=== PATIENT | male | born 1950 | race Two or more races ===

== ENCOUNTER 2021-03-06 15:56 | Inpatient (IN) | payer OTHER ==
[~2021-03-06] VITALS: Ht 165.1 cm; Wt 49.9 kg
[2021-03-06] MEDS ORDERED: CLONAZEPAM1 MG (16:21)
== END 2021-04-11 22:55 | disposition home or self-care (01) | DRG 981 ==
LOC: ER 15:56 → SEC-K 03-07 07:49 → MEDJ 03-07 07:49 → MEDI 03-07 14:04 → MEDJ 03-11 15:10 → ICU 03-19 16:20 → SURH 03-21 20:02
PROVIDERS: Surgery; ADMIT Internal Medicine; ATTEND Internal Medicine
PROC: BW21ZZZ Computerized Tomography (CT Scan) of Abdomen and Pelvis (ICD-10-PCS; 2021-03-07)
PROC: 4A12X4Z Monitoring of Cardiac Electrical Activity, External Approach (ICD-10-PCS; 2021-03-11)
PROC: 8E0ZXY6 Isolation (ICD-10-PCS; 2021-03-12)
PROC: 0D1B0Z4 Bypass Ileum to Cutaneous, Open Approach (ICD-10-PCS; 2021-03-19)
PROC: BW2110Z Computerized Tomography (CT Scan) of Abdomen and Pelvis using Low Osmolar Contrast, Unenhanced and Enhanced (ICD-10-PCS; 2021-03-19)
PROC: 3E0F7SF Introduction of Other Gas into Respiratory Tract, Via Natural or Artificial Opening (ICD-10-PCS; 2021-03-19)
PROC: 4A033R1 Measurement of Arterial Saturation, Peripheral, Percutaneous Approach (ICD-10-PCS; 2021-03-19)
PROC: 0DTM0ZZ Resection of Descending Colon, Open Approach (ICD-10-PCS; principal; 2021-03-19 10:15)
PROC: 3E0F7GC Introduction of Other Therapeutic Substance into Respiratory Tract, Via Natural or Artificial Opening (ICD-10-PCS; 2021-03-20)
PROC: BW21ZZZ Computerized Tomography (CT Scan) of Abdomen and Pelvis (ICD-10-PCS; 2021-04-01)
PROC: 30233N1 Transfusion of Nonautologous Red Blood Cells into Peripheral Vein, Percutaneous Approach (ICD-10-PCS; 2021-04-02)
PROC: 05HY33Z Insertion of Infusion Device into Upper Vein, Percutaneous Approach (ICD-10-PCS; 2021-04-03)
DX: N39.0 Urinary tract infection, site not specified (principal); N17.8 Other acute kidney failure; U07.1 COVID-19; K56.699 Other intestinal obstruction unspecified as to partial versus complete obstruction; C18.6 Malignant neoplasm of descending colon; K63.1 Perforation of intestine (nontraumatic); K65.8 Other peritonitis; J18.8 Other pneumonia, unspecified organism; A41.9 Sepsis, unspecified organism; E87.1 Hypo-osmolality and hyponatremia; D64.9 Anemia, unspecified; B96.1 Klebsiella pneumoniae [K. pneumoniae] as the cause of diseases classified elsewhere; I12.9 Hypertensive chronic kidney disease with stage 1 through stage 4 chronic kidney disease, or unspecified chronic kidney disease; N18.9 Chronic kidney disease, unspecified; D72.828 Other elevated white blood cell count; E87.6 Hypokalemia; G20 Parkinson's disease; F02.80 Dementia in other diseases classified elsewhere, unspecified severity, without behavioral disturbance, psychotic disturbance, mood disturbance, and anxiety; Z20.822 Contact with and (suspected) exposure to COVID-19; F17.210 Nicotine dependence, cigarettes, uncomplicated